=== PATIENT | female | born 1995 | race African-American/Black ===

== ENCOUNTER 2023-09-28 19:29 | Emergency (ER) | payer SELFPAY ==
--- NOTE | ~2023-09-28 | US_ITS ---
EXAMINATION: US PELVIS CLINICAL INFORMATION: Abnormal uterine bleeding and pain. COMPARISON: None available. TECHNIQUE: Ultrasound of the pelvis is performed using both transabdominal and transvaginal transducers along with Doppler. Transvaginal imaging is performed due to inadequate visualization transabdominally. FINDINGS: The uterus is anteverted and measures 7 x 3.5 x 4.5 cm in dimension. Endometrial thickness measures 1.1 cm. The endometrium is heterogeneous appearing. There is a 1.4 x 0.5 x 0.7 cm hyperechoic area in the endometrium with central vascularity questionable for a polyp. No other focal uterine lesion. The ovaries are normal. The right ovary measures 2.6 x 1.4 x 1.9 cm. The left ovary measures 3 x 1.6 x 2.4 cm. There is no fluid in the pelvis. There is echogenic mobile debris in the bladder. There may be mild diffuse bladder wall thickening. Correlation with urinalysis recommended. US/US pelvic and transvaginal IMPRESSION: Heterogeneous endometrium and question 1.4 x 0.5 x 0.7 cm endometrial polyp. Mobile echogenic debris in the bladder and question mild diffuse bladder wall thickening. Correlation with urinalysis recommended.
[2023-09-28 19:40] VITALS: BP 150/78; PULSE 79; RESP 14; TEMP 36.6; O2SAT 100; BMI 38.9
--- NOTE | 2023-09-28 19:42 | ED_ITS ---
HPI - General Adult General Chief complaint: Vaginal Bleeding Stated complaint: dizzy, 10 day periods Time Seen by Provider: 09/28/23 22:07 Source: patient Mode of arrival: ambulatory Limitations: no limitations History of Present Illness HPI narrative: Patient comes to the emergency room complaining of vaginal bleeding. Patient states that for the last 2 months, her periods have been heavier than usual, lasting approximately 10 days. Patient states that sometimes she feels a bit lightheaded. Denies chest pain or shortness of breath. No lightheadedness at this time or even today. Patient states that she does not have a primary care physician and therefore got scared and wanted to make sure that she has not anemic. Related Data Allergies Allergy/AdvReac Type Severity Reaction Status Date / Time No Known Allergies Allergy Verified 09/28/23 19:42 Review of Systems 2 Review of Systems: Constitutional : No Weight loss, No Fever, No Chills, No Night Sweats, No Fatigue, No Malaise ENT/Mouth : No Hearing loss, No Ear Pain, No Nasal Congestion, No Sinus Pain, No Hoarseness, No sore throat, No Rhinorrhea, No Swallowing Difficulty Eyes: No Eye Pain, No Swelling, No Redness, No Foreign Body, No Discharge, No Vision Changes Cardiovascular : No Chest Pain, No SOB, No Dyspnea on Exertion, No Orthopnea, No Edema, No Palpitations Respiratory : No Cough, No Sputum, No Wheezing, No Smoke Exposure, No Dyspnea Gastrointestinal : No Nausea, No Vomiting, No Diarrhea, No Constipation, No abdominal Pain, No Hematochezia, No Melena Genitourinary : Heavy menstrual periods for 2 cycles, each lasting 10 days, No Dysuria, No Urinary Frequency, No Hematuria, No Urinary Incontinence, No Urgency, No Flank Pain, No Urinary Flow Changes, No Hesitancy Musculoskeletal : No joint pain, No Myalgias, No Joint Swelling Skin : No Skin Lesions, No rash Neuro : No Weakness, No Numbness, No Paresthesias, No Loss of Consciousness, No Dizziness, No Headache Psych : No Anxiety/Panic, No Depression, No SI/HI/AH/VH, No Social Issues, Heme/Lymph: No Bruising, No Bleeding,No Lymphadenopathy Endocrine : No Polyuria, No Polydipsia, No Temperature Intolerance PMFSH Social History Social History Advance Directives: No Advance Directives Information Provided: No Do you have a plan to hurt others: No Plan Physical Exam ED Vital Signs: Vital Signs - 24 hr 09/28/23 19:40 Temperature 97.8 F Pulse Rate 79 Respiratory Rate 14 Blood Pressure 150/78 H Pulse Oximetry 100 Oxygen Delivery Method Room Air BMI result Body Mass Index 38.9 Const Other: Appearance: Alert. Oriented X3. No acute distress. Eyes: Pupils equal, round and reactive to light. ENT: Pharynx normal. Neck: Normal inspection. Neck supple. No lymph nodes noted. No crepitus CVS: Normal heart rate and rhythm. Pulses normal. Normal S1 and S2 Respiratory: No respiratory distress. Breath sounds normal. No Wheezing. No rales Abdomen: Soft and nontender. No rigidity. No distention. : No blood in the vaginal canal Skin: Skin warm and dry. Normal skin color. Normal skin turgor. Extremities: No lower extremity edema. No Lacerations. No Rash Neuro: Oriented X 3. No motor deficit. No sensory deficit. Moving all extremities. No slurred speech. CN 2 through 12 grossly intact Psych: calm, cooperative, normal affect Course Course Course Narrative: RME performed by Radha Perez PA-C. Patient is a 27 year old assigned female at presenting to the emergency department with vaginal bleeding. Patient states that she isn't bleeding right now but over the last 2 months, she has had 2 periods that have lasted >10 days and have been heavy, which is unusual for her. Patient states that she has also had some lightheadedness / dizziness. Detailed physical exam and review of systems are deferred to the top taper machine. Labs, imaging, and swabs ordered. Patient placed back in the waiting room pending room availability and results. Medical Decision Making Medical Decision Making [facility] Narrative: -my interpretation of labs, patient is mildly anemic, hemoglobin 11.7, hematocrit 34.5. Chemistry within normal limits, coagulation times normal. test negative -a pelvic ultrasound was done today, radiology report: Question 1.4 x 0.5 x 0.7 cm endometrial polyp -on pelvic exam, there was no blood present. -I discussed with the patient starting control pills or following up with her primary care physician or OBGYN for an IUD. Patient states that this time she does not want any control or any other medications. Patient states that she wants to wait for a few more cycles to see what happens with her menstrual period. Differential Diagnosis Differential Diagnoses: The differential diagnosis associated with the presentation includes (Menorrhagia, menometrorrhagia, ) Lab Data MDM Lab Attestation statement: I reviewed the patient's lab results. 09/28/23 20:40 09/28/23 20:40 Labs: Lab Results 09/28/23 Range/Units 20:40 WBC 6.7 (4.8-10.8) X10*3/uL RBC 3.80 L (4.20-5.50) X10*6/uL Hgb 11.7 L (12.0-16.0) g/dl Hct 34.5 L (37.0-47.0) % MCV 90.8 (80.0-98.0) fL MCH 30.8 (27.0-33.0) pg MCHC 33.9 (31.0-35.0) g/dl RDW 15.2 (11.0-16.0) % Plt Count 386 (160-400) X10*3/uL MPV 10.3 (9.4-12.3) fL Immature Gran % (Auto) 0.3 (0.0-0.4) % Neut % (Auto) 59.3 (45-73) % Lymph % (Auto) 31.5 (20-40) % [place] % (Auto) 7.4 (2-11) % Eos % (Auto) 0.6 (0-4) % Baso % (Auto) 0.9 (0-2) % Lymph # (Auto) 2.1 (1.2-4.9) X10*3/uL [place] # (Auto) 0.5 (0.1-1.2) X10*3/uL Eos # (Auto) 0.0 (0.0-0.4) X10*3/uL Baso # (Auto) 0.1 (0.0-0.2) X10*3/uL Abs Immat Gran (auto) 0.02 (0.00-0.03) X10*3/uL Absolute Neuts (auto) 4.0 (2.0-8.3) x10*3/uL Absolute Nucleated RBC 0.000 (0.0-0.012) X10*3/uL Nucleated RBC % (auto) 0.0 (0.0-0.2) /100WBC PT 12.6 (11.1-13.3) SEC INR 1.0 (0.9-1.1) APTT 34.0 (26.0-36.8) SEC Sodium 141 (135-145) mmol/L Potassium 3.8 (3.3-5.1) mmol/L Chloride 107 (96-108) mmol/L Carbon Dioxide 24 (22-29) mmol/L Anion Gap 14 (12-20) BUN 12 (9-16) mg/dL Creatinine 0.81 (0.5-1.4) mg/dL Estim Creat Clear Calc 125.0 Estimated GFR > 60 Random Glucose 91 (60-115) mg/dL Calcium 9.2 (8.4-10.2) mg/dL Magnesium 2.0 (1.6-2.6) mg/dL Total Bilirubin 0.9 (0.0-1.0) mg/dL AST 17 (5-31) U/L ALT 15 (0-31) U/L Alkaline Phosphatase 72 (39-117) U/L Total Protein 7.8 (6.5-8.0) g/dL Albumin 4.2 (3.5-5.0) g/dL Urine Color Yellow Urine Appearance Clear Urine pH 6.0 (5.0-9.0) Ur Specific [place] >= 1.030 H (1.005-1.025) Urine Protein Negative (Neg-Trace) mg/dL Urine Glucose (UA) Negative (Negative) mg/dL Urine Ketones 40 (Negative) mg/dL Urine Blood Negative (Negative) Urine Nitrite Negative (Negative) Ur Leukocyte Esterase Negative (Negative) Urine Test NEGATIVE (NEGATIVE) Independent Interpretation I performed an independent interpretation of an: Ultrasound Radiology Impression Discussion of test interpretation with radiology: I have reviewed the radiologist's reading. Radiologist Impression: FINDINGS: The uterus is anteverted and measures 7 x 3.5 x 4.5 cm in dimension. Endometrial thickness measures 1.1 cm. The endometrium is heterogeneous appearing. There is a 1.4 x 0.5 x 0.7 cm hyperechoic area in the endometrium with central vascularity questionable for a polyp. No other focal uterine lesion. The ovaries are normal. The right ovary measures 2.6 x 1.4 x 1.9 cm. The left ovary measures 3 x 1.6 x 2.4 cm. There is no fluid in the pelvis. There is echogenic mobile debris in the bladder. There may be mild diffuse bladder wall thickening. Correlation with urinalysis recommended. US/US pelvic and transvaginal IMPRESSION: Heterogeneous endometrium and question 1.4 x 0.5 x 0.7 cm endometrial polyp. Mobile echogenic debris in the bladder and question mild diffuse bladder wall thickening. Correlation with urinalysis recommended. Discharge Plan Discharge Clinical Impression: Menometrorrhagia Patient Disposition: Home, Self-Care Instructions: Menorrhagia (ED) Additional Instructions: Please follow-up with your primary care physician tomorrow. If you have any worsening or new symptoms, please return to the emergency room or call 911 Referrals: Jean Marie Pizano MD [Physician] - 10/02/23 Print Language: Emirati
[2023-09-28 20:44] LABS: MANUAL DIFF FLAG NO
--- OUTSIDE RECORDS SUMMARY | 2023-09-28 20:49 | XMS_ITS | Continuity of Care Document ---
Author Organization [facility] [address] Address [address] [place] [address]- Care Team Providers Care Keno Attendant Name Role Phone Jamin BLANCAS, Jenise Lewis Primary Care Physician [place] [facility] [place]): [place] - 01/03/[address] [address]- [facility] Encounter Diagnosis Allergic reaction(Final) - 01/03/20 Anaphylaxis(Final) - 01/03/20 Discharge Disposition: A-D/C Home Attending Physician: Kristopher James MD Admitting Physician: Kristopher James MD Referring Physician: Not on Staff, Referring MD Allergies, Adverse Reactions, Alerts Substance Reaction Severity Status Latex O/E - lip swelling Hives Active Potatoes Active Immunizations Given and Recorded Vaccine Date Status Refusal Reason tetanus-diphtheria toxoids (Td) 09/28/13 Given Medications EPINEPHrine 0.3 mg injectable solution = 0.3 mg, Intramuscular, Once, PRN Anaphylactic Reaction, # 2 kit, 0 Refills, Soft Stop, 01/03/20 16:55:00 EDT, [facility], 165, cm, 10/31/18 18:43:00 EDT, Height, 91, kg, 10/31/18 18:43:00 EDT, Dry Weight Start Date: 01/03/20 Status: Ordered EpiPen 2-Celestino 0.3 mg injectable kit = 0.3 mg, Intramuscular, Once, use for severe allergic reaction, # 1 pack/packet, 0 Refills, Soft Stop, 07/30/14 5:54:55 Start Date: 07/30/14 Status: Ordered omeprazole 10 mg oral enteric coated capsule 1 capsule = 10 mg, By Mouth, Daily, # 30 capsule, 0 Refills, Maintenance, 10/31/18 18:09:48 EDT, ECCapsule Start Date: 10/31/18 Status: Ordered Vital Signs Most recent to oldest [Reference Range]: 1 2 3 Oxygen Saturation [94-100 %] 100 % (01/03/20 7:46 PM) 99 % (01/03/20 6:19 PM) 100 % (01/03/20 4:25 PM) Pulse Rate [55-90 bpm] 103 bpm *H* (01/03/20 7:46 PM) 101 bpm *H* (01/03/20 6:19 PM) 98 bpm *H* (01/03/20 4:25 PM) Blood Pressure [90-138/55-84 mm Hg] 125/66mm Hg (01/03/20 7:46 PM) 137/57mm Hg (01/03/20 6:19 PM) 120/51mm Hg (01/03/20 4:25 PM) Respiratory Rate [16-30 br/min] 19 br/min (01/03/20 7:46 PM) 23 br/min (01/03/20 6:19 PM) 22 br/min (01/03/20 4:25 PM) Temperature [96.8-100.4 DegF] 98.3 DegF (01/03/20 7:46 PM) 98.9 DegF (01/03/20 6:19 PM) 99.0 DegF (01/03/20 3:03 PM) Mode of Delivery (Oxygen) Room air (01/03/20 7:46 PM) Nasal cannula (01/03/20 6:19 PM) Room air (01/03/20 4:25 PM) Blood pressure sites Arm, right (01/03/20 6:19 PM) Arm, right (01/03/20 4:25 PM) Arm, right (01/03/20 3:03 PM) Temperature Route Oral (01/03/20 7:46 PM) Oral (01/03/20 6:19 PM) Oral (01/03/20 3:03 PM) Social History Social History Type Response Smoking Status Never smoker; Tobacc o user in household: No entered on: 10/27/14 Sex
[2023-09-28 20:53] LABS: Basophils Absolute Auto 0.1 X10*3/uL (0.0-0.2); Basophils Percent Auto 0.9 % (0-2); Eosinophils Percent Auto 0.6 % (0-4); Hematocrit 34.5 % (37.0-47.0); Hemoglobin 11.7 g/dl (12.0-16.0); Imm Gran Abs Auto 0.02 X10*3/uL (0.00-0.03); Imm Gran Pct Auto 0.3 % (0.0-0.4); Lymphocytes Absolute Auto 2.1 X10*3/uL (1.2-4.9); Lymphocytes Percent Auto 31.5 % (20-40); Mean Corpuscular HGB Conc 33.9 g/dl (31.0-35.0); Mean Corpuscular Hemoglobin 30.8 pg (27.0-33.0); Mean Corpuscular Volume 90.8 fL (80.0-98.0); Mean Platelet Volume 10.3 fL (9.4-12.3); Monocytes Absolute Auto 0.5 X10*3/uL (0.1-1.2); Monocytes Percent Auto 7.4 % (2-11); Neutrophils Percent Auto 59.3 % (45-73); Platelet Count 386 X10*3/uL (160-400); Red Cell Distribution Width 15.2 % (11.0-16.0); White Blood Count 6.7 X10*3/uL (4.8-10.8)
[2023-09-28 20:59] LABS: Alanine Aminotransferase 15 U/L (0-31); Albumin Level 4.2 g/dL (3.5-5.0); Alkaline Phosphatase 72 U/L (39-117); Anion Gap 14 (12-20); Aspartate Amino Transferase 17 U/L (5-31); Bilirubin Total 0.9 mg/dL (0.0-1.0); Blood Urea Nitrogen 12 mg/dL (9-16); Calcium 9.2 mg/dL (8.4-10.2); Carbon Dioxide 24 mmol/L (22-29); Chloride 107 mmol/L (96-108); Estimated Glomerular Filt Rate > 60; Glucose Random 91 mg/dL (60-115); Potassium 3.8 mmol/L (3.3-5.1); Sodium 141 mmol/L (135-145); Total Protein 7.8 g/dL (6.5-8.0)
[2023-09-28 21:04] LABS: Appearance Urine Clear; Color Urine Yellow; Glucose Urine UA Negative (Negative); Leukocyte Esterase Urine Negative (Negative); Nitrite Urine Negative (Negative); Specific Gravity - Urine >= 1.030 (1.005-1.025); Urine Blood Negative (Negative); Urine Ketones 40 mg/dL (Negative); Urine Protein Negative (Neg-Trace)
[2023-09-28 21:22] LABS: Prothrombin Time 12.6 SEC (11.1-13.3)
[2023-09-28 22:26] LABS: UPreg QC Valid YES; Urine Pregnancy NEGATIVE (NEGATIVE)
--- NOTE | 2023-09-28 23:23 | PC.NURSE ---
pt assessed at d/c, no vaginal bleeding observed at d/c
== END 2023-09-28 23:24 | disposition home or self-care (01) ==
PROVIDERS: Physician Assistant Medical; Emergency Provider Emergency Medicine
DX: N92.1 Excessive and frequent menstruation with irregular cycle (principal)
CPT/HCPCS: 36415; 76830; 76856; 80053; 81003; 81025; 83735; 85025; 85610; 85730; 99282; 99284

== ENCOUNTER 2024-04-29 00:10 | Emergency (ER) | payer SELFPAY ==
[2024-04-29 00:36] VITALS: BP 128/80; PULSE 73; RESP 18; TEMP 36.9; O2SAT 100; BMI 42.1
--- NOTE | 2024-04-29 01:09 | ED_ITS ---
HPI - Female Genitourinary General Chief complaint: Urogenital-Female Stated complaint: female problems Time Seen by Provider: 04/29/24 01:00 Source: patient Mode of arrival: ambulatory Limitations: no limitations History of Present Illness ED Provider: Dr. Cristy Canales HPI Narrative: Patient comes to the emergency room complaining of vaginal other and dysuria. Patient states that she has been having the same sexual partner. Patient states that she has been diagnosed with bacterial vaginosis in the past and has a same symptoms. Patient denies flank pain Related Data Previous Rx's ?Medication ?Instructions ?Recorded metronidazole 500 mg tablet 500 mg PO BID #13 tabs 04/29/24 Allergies Allergy/AdvReac Type Severity Reaction Status Date / Time No Known Allergies Allergy Verified 04/29/24 00:40 Review of Systems Review of Systems: Constitutional : No Weight loss, No Fever, No Chills, No Night Sweats, No Fatigue, No Malaise ENT/Mouth : No Hearing loss, No Ear Pain, No Nasal Congestion, No Sinus Pain, No Hoarseness, No sore throat, No Rhinorrhea, No Swallowing Difficulty Eyes: No Eye Pain, No Swelling, No Redness, No Foreign Body, No Discharge, No Vision Changes Cardiovascular : No Chest Pain, No SOB, No Dyspnea on Exertion, No Orthopnea, No Edema, No Palpitations Respiratory : No Cough, No Sputum, No Wheezing, No Smoke Exposure, No Dyspnea Gastrointestinal : No Nausea, No Vomiting, No Diarrhea, No Constipation, No abdominal Pain, No Hematochezia, No Melena Genitourinary : Complaining of vaginal malodorous discharge, No Dysuria, No Urinary Frequency, No Hematuria, No Urinary Incontinence, No Urgency, No Flank Pain, No Urinary Flow Changes, No Hesitancy Musculoskeletal : No joint pain, No Myalgias, No Joint Swelling Skin : No Skin Lesions, No rash Neuro : No Weakness, No Numbness, No Paresthesias, No Loss of Consciousness, No Dizziness, No Headache Psych : No Anxiety/Panic, No Depression, No SI/HI/AH/VH, No Social Issues, Heme/Lymph: No Bruising, No Bleeding,No Lymphadenopathy Endocrine : No Polyuria, No Polydipsia, No Temperature Intolerance PMFSH Social History Social History Advance Directives: No Advance Directives Information Provided: Yes Patient : No Physical Exam Vital Signs: Vital Signs: Last Vital Signs Temp 98.4 F 04/29/24 00:36 Pulse 73 04/29/24 00:36 Resp 18 04/29/24 00:36 BP 128/80 04/29/24 00:36 Pulse Ox 100 04/29/24 00:36 O2 Del Method Room Air 04/29/24 00:36 BMI result Body Mass Index 42.1 Const: Other: Appearance: Alert. Oriented X3. No acute distress. Eyes: Pupils equal, round and reactive to light. ENT: Pharynx normal. Neck: Normal inspection. Neck supple. No lymph nodes noted. No crepitus CVS: Normal heart rate and rhythm. Pulses normal. Normal S1 and S2 Respiratory: No respiratory distress. Breath sounds normal. No Wheezing. No rales Abdomen: Soft and nontender. No rigidity. No distention. : Whitish discharge, malodorous, no vaginal bleeding Skin: Skin warm and dry. Normal skin color. Normal skin turgor. Extremities: No lower extremity edema. No Lacerations. No Rash Neuro: Oriented X 3. No motor deficit. No sensory deficit. Moving all extremities. No slurred speech. CN 2 through 12 grossly intact Psych: calm, cooperative, normal affect Medical Decision Making Medical Decision Making [facility] Narrative: Patient did have malodorous vaginal discharge, likely bacterial vaginosis. Patient was given the 1st dose of antibiotics in the emergency room, metronidazole. -urine test negative. -I discussed with the patient that the STD panel will not come back today, likely within the next day or so. -urinalysis negative for UTI Differential Diagnosis Differential Diagnoses: The differential diagnosis associated with the presentation includes (Bacterial vaginosis, UTI, STDs) Lab Data [facility] Lab Attestation statement: I reviewed the patient's lab results. Labs: Lab Results 04/29/24 Range/Units 01:35 Urine Color Yellow Urine Appearance Cloudy Urine pH 5.5 (5.0-9.0) Ur Specific [place] 1.025 (1.005-1.025) Urine Protein Negative (Neg-Trace) mg/dL Urine Glucose (UA) Negative (Negative) mg/dL Urine Ketones Negative (Negative) mg/dL Urine Blood Trace H (Negative) Urine Nitrite Negative (Negative) Ur Leukocyte Esterase Negative (Negative) Urine RBC 3-5 H (0-2) /HPF Urine WBC 0-5 (0-5) /HPF Ur Squamous Epith Cells >20 (0-2) /HPF Urine Bacteria 2+ (None Seen) Hyaline Casts 0-2 (0-2) /LPF Urine Test NEGATIVE (NEGATIVE) Discharge Plan Discharge Clinical Impression: Bacterial vaginosis Patient Disposition: Home, Self-Care Instructions: Bacterial Vaginosis (ED) Prescriptions: New metronidazole 500 mg tablet 500 mg PO BID Qty: 13 0RF Print Language: [place]
[2024-04-29 01:44] LABS: UPreg QC Valid YES; Urine Pregnancy NEGATIVE (NEGATIVE)
[2024-04-29 02:29] LABS: Appearance Urine Cloudy; Color Urine Yellow; Glucose Urine UA Negative (Negative); Leukocyte Esterase Urine Negative (Negative); Nitrite Urine Negative (Negative); PH 5.5 (5.0-9.0); Specific Gravity - Urine 1.025 (1.005-1.025); UMIC TRIGGER UACC YES; Urine Blood Trace (Negative); Urine Ketones Negative (Negative); Urine Protein Negative (Neg-Trace)
[2024-04-29 02:31] LABS: Bacteria Urine 2+ (None Seen); Hyaline Casts Urine 0-2 /LPF (0-2); Squamous Epithelial Cell Urine >20 /HPF (0-2); WBC Urine 0-5 /HPF (0-5)
[2024-04-29] MEDS: metroNIDAZOLE 500 MG TABLET PO (03:07)
[2024-04-29 03:11] LABS: CT PCR NOT DETECTED (Not Detect.); NG PCR NOT DETECTED (Not Detect.)
[2024-04-29 03:58] VITALS: BP 132/79; PULSE 79; RESP 16; TEMP 36.7; O2SAT 98
[2024-04-29 11:09] LABS: Bacterial Vaginosis PCR POSITIVE (Negative); Candida Group PCR DETECTED (Not Detect); Candida glab krusei PCR NOT DETECTED (Not Detect); Trichomonas vaginalis PCR NOT DETECTED (Not Detect)
== END 2024-04-29 03:59 | disposition home or self-care (01) ==
PROVIDERS: Emergency Provider Emergency Medicine
DX: N76.0 Acute vaginitis (principal); R30.0 Dysuria; Z79.899 Other long term (current) drug therapy
CPT/HCPCS: 0352U; 81001; 81025; 87491; 87591; 99283; 99284